=== PATIENT | male | born 1980 | race Caucasian/White ===

== ENCOUNTER 2016-03-20 17:08 | Emergency (ER) | payer MEDICAID ==
[~2016-03-20] VITALS: Ht 205.7 cm; Wt 113.4 kg
[2016-03-20 17:15] VITALS: BP 154/100
[2016-03-20] MEDS ORDERED: HYDROCODONE/APAP 5/325MG 1 EACH TABLET ONE (17:54)
[2016-03-20] MEDS ORDERED: HYDROCODONE/APAP 5/325MG 1 EACH TABLET PO ONE (18:00)
== END 2016-03-20 18:16 | disposition home or self-care (01) ==
LOC: ER 17:10
DX: K04.7 Periapical abscess without sinus (principal); K02.9 Dental caries, unspecified; F17.200 Nicotine dependence, unspecified, uncomplicated
CPT/HCPCS: 99283; A4606; Z7610

== ENCOUNTER 2018-11-07 20:52 | Emergency (ER) | payer MEDICAID ==
[~2018-11-07] VITALS: Ht 205.7 cm; Wt 124.7 kg
[2018-11-07 22:01] VITALS: BP 136/76
== END 2018-11-07 22:33 | disposition home or self-care (01) ==
LOC: ER 20:55
DX: Z00.8 Encounter for other general examination (principal); F17.200 Nicotine dependence, unspecified, uncomplicated; Z98.890 Other specified postprocedural states

== ENCOUNTER 2018-11-28 21:38 | Emergency (ER) | payer MEDICAID ==
--- NOTE | 2018-11-28 22:01 | NUR ---
CALLED FOR PT IN [place]. NO RESPONSE.
--- NOTE | 2018-11-28 22:23 | NUR ---
CALLED FOR PT IN [place]. NO RESPONSE.
--- NOTE | 2018-11-28 22:56 | NUR ---
CALLED FOR PT IN [place]. NO RESPONSE.
== END 2018-11-28 23:11 | disposition left against medical advice (07) ==
LOC: ER 21:42
DX: Z53.21 Procedure and treatment not carried out due to patient leaving prior to being seen by health care provider (principal)